=== PATIENT | male | born 1995 | race African-American/Black ===

== ENCOUNTER 2020-08-20 00:56 | Emergency (ER) | payer OTHER ==
[2020-08-20 01:26] LABS: BASOPHIL 0.3 % (0-2); EOSINOPHIL 0.5 % (0-5); HCT 43.8 % (42.0-52.0); HGB 15.5 g/dl (13.2-18.0); MCH 31.6 pg (25.0-31.0); MCHC 35.4 g/dL (32.0-36.0); MCV 89.2 fL (78.0-100.0); MONOCYTE 6.3 % (0-12); MPV 9.4 fL (6.0-9.5); NEUTROPHIL 66.7 % (41-80); NRBC 0; PLT 261 K/uL (150-400); RBC 4.91 M/uL (4.70-6.00); RDW 12.6 % (11.5-14.0)
[2020-08-20 01:43] LABS: BILIRUBIN - TOTAL 0.4 mg/dL (0.2-1.0); BUN/CREAT RATIO (CALC) 8.7 RATIO; CREATININE 1.26 mg/dL (0.67-1.17); GLOBULIN (CALCULATION) 3.4 g/dL; POTASSIUM 3.7 mmol/L (3.5-5.1); TOTAL PROTEIN 7.4 g/dL (6.4-8.2)
== END 2020-08-20 02:55 | disposition home or self-care (01) ==
LOC: FER 00:56
PROVIDERS: Emergency Medicine
DX: T40.1X1A Poisoning by heroin, accidental (unintentional), initial encounter (principal)
CPT/HCPCS: 36415; 80053; 85025; G0480; J2310

== ENCOUNTER 2020-09-03 16:43 | Emergency (ER) | payer OTHER ==
[2020-09-03] MEDS ORDERED: ZPAK PO (19:06)
== END 2020-09-03 19:32 | disposition home or self-care (01) ==
LOC: FER 16:43
DX: J06.9 Acute upper respiratory infection, unspecified (principal); Z20.822 Contact with and (suspected) exposure to COVID-19
CPT/HCPCS: 71045; U0002

== ENCOUNTER 2021-01-24 21:53 | Emergency (ER) | payer SELFPAY ==
[~2021-01-24 21:53] MED LIST: ZPAK PO
[2021-01-24 22:17] LABS: BASOPHIL 0.6 % (0-2); EOSINOPHIL 1.4 % (0-5); HCT 45.5 % (42.0-52.0); HGB 15.3 g/dl (13.2-18.0); LYMPHOCYTE 19.4 % (15-48); MCHC 33.6 g/dL (32.0-36.0); MCV 89.2 fL (78.0-100.0); MONOCYTE 7.3 % (0-12); MPV 9.1 fL (6.0-9.5); NEUTROPHIL 70.5 % (41-80); NRBC 0; PLT 273 K/uL (150-400); RDW 12.4 % (11.5-14.0); WBC 3.6 K/uL (4.0-10.5)
[2021-01-24 22:40] LABS: ALBUMIN 4.1 g/dL (3.4-5.0); ALKALINE PHOSHATASE 86 U/L (46-116); ALT 39 U/L (16-63); AST 24 U/L (15-37); BILIRUBIN - TOTAL 0.5 mg/dL (0.2-1.0); BUN 14 mg/dL (7-18); BUN/CREAT RATIO (CALC) 10.9 RATIO; CHLORIDE 103 mmol/L (98-107); CO2 (BICARBONATE) 29 mmol/L (21-32); CPK 274 U/L (39-308); CREATININE 1.28 mg/dL (0.67-1.17); GLOBULIN (CALCULATION) 3.3 g/dL; GLUCOSE 145 mg/dL (74-106); POTASSIUM 4.4 mmol/L (3.5-5.1); TOTAL PROTEIN 7.4 g/dL (6.4-8.2)
[2021-01-24 23:42] LABS: AMPHETAMINES POSITIVE (NEGATIVE); BARBITURATES NEGATIVE (NEGATIVE); ECSTASY (MDMA) NEGATIVE (NEGATIVE); MARIJUANA (THC) NEGATIVE (NEGATIVE); METHADONE NEGATIVE (NEGATIVE); OPIATES NEGATIVE (NEGATIVE); OXYCODONE POSITIVE (NEGATIVE)
== END 2021-01-25 00:07 | disposition home or self-care (01) ==
LOC: FER 21:53
PROVIDERS: Emergency Medicine Emergency Medical Services
DX: T40.1X1A Poisoning by heroin, accidental (unintentional), initial encounter (principal)
CPT/HCPCS: 36415; 80053; 80305; 82550; 84484; 85025; 99285; G0480; J7030